=== PATIENT | male | born 1950 | race Caucasian/White ===

== ENCOUNTER 2017-04-10 15:41 | Emergency (ER) | payer MEDICARE, BC ==
[2017-04-10 15:54] VITALS: BP 169/78
[2017-04-10] MEDS ORDERED: Sodium Chloride 0.9% 1,000 ML IV ONE (16:10)
[2017-04-10] MEDS ORDERED: Ondansetron 4 MG/2 ML SDV IV ONE (16:10)
[2017-04-10] MEDS ORDERED: HYDROmorphone 1 MG/ML Syringe IVPUSH ONE (16:10)
[2017-04-10] MEDS ORDERED: Sodium Chloride 0.9% 10 ML Syringe FLUSH PRN (16:10)
--- NOTE | 2017-04-10 17:01 | CT ---
Clinical history: 66 year-old 206 pound male unexplained right lower quadrant pain. Scan technique: Volume acquisition of data from the abdomen and pelvis obtained without oral or IV co ntrast (emergency department) while the patient was lying supine on the Siemens multi slice scanner [facility]. All data archived in the PACS system for storage, refo rmatting and study. Interpretation: Abnormal. 1. Cholelithiasis i.e. solitary small intraluminal calcification gallbladder, right upper quadrant. H omogeneous normal density liver without sign of intra or extrahepatic biliary duct dilatation. Normal stomach and pancreas. Spleen unremarkable. 2. Normal appendix RLQ. 3. *Isolated tiny 1 mm diameter tone lodged in the distal right ureter which is dilated proximally (a ssociated mild pyelocaliectasis on the right as well) i.e. distal right, partially obstructing, urete rolithiasis. 4. No sign of diverticulitis, pelvic/abdominal soft tissue mass, retroperitoneal lymphadenopathy, inf lammatory "dirty" peritoneal fat, mechanical bowel obstruction, ascites or free intraperitoneal air. 5. Normal caliber aortoiliac vessels. 6. Multiple punctate calcifications prostate gland. Small volume but symmetric urinary bladder withou t calcifications. 7. Normal cardiac silhouette. Lung bases clear. Lumbar spine unremarkable. CONCLUSION: Distal right ureterolith. Cholelithiasis.
[2017-04-10] MEDS ORDERED: Tamsulosin 0.4 MG Cap.ER PO ONE (17:06)
--- NOTE | 2017-04-10 17:35 | EDM.PDOC ---
Scribed by Jenifer Hernandez 04/10/17 [id number] for Scar Moseley MD ED HPI GENERAL MEDICAL PROBLEM - General Chief Complaint: Abdominal Pain Stated Complaint: LOWER RT ABD PAIN, [id number] Time Seen by Provider: 04/10/17 16:04 Source of Information: Reports: Patient, RN, RN Notes Reviewed History Limitations: Reports: No Limitations - History of Present Illness INITIAL COMMENTS - FREE TEXT/NARRATIVE: Patient arrived by POV with complaint of onset of right lower quadrant pain this morning at approximately 10 am. The pain has been axing and weaning throughout the day, rated at 9/10 at maximum intensity. Patient's symptoms have been associated with nausea and vomiting. He has had some fever and chills sensations, but did not measure his temperature. Onset: Today Duration: Waxing/Waning Location: Reports: Abdomen Quality: Reports: Ache Severity: Severe Improves with: Reports: None Worsens with: Reports: None Associated Symptoms: Reports: No Other Symptoms Right Lower Abdominal Pain Score (Numeric/FACES): 4 - Related Data Allergies Allergy/AdvReac Type Severity Reaction Status Date / Time aspirin Allergy Vomiting Verified 04/10/17 15:51 Home Meds: Home Meds . [No Known Home Meds] 04/10/17 [History] Past Medical History - Past Health History Medical/Surgical History: Denies Medical/Surgical History Social & Family History - Family History Family Medical History: Noncontributory - Tobacco Use Smoking Status *Q: Never Smoker Second Hand Smoke Exposure: No - Caffeine Use Caffeine Use: Reports: None - Recreational Drug Use Recreational Drug Use: No ED ROS GENERAL - Review of Systems Review Of Systems: ROS reveals no pertinent complaints other than HPI. ED EXAM, GI/ABD - Physical Exam Exam: See Below Exam Limited By: No Limitations General Appearance: Alert, WD/WN, No Apparent Distress Nose: Normal Inspection Throat/Mouth: Normal Inspection, Normal Lips, Normal Teeth, Normal Gums, Normal Oropharynx, Normal Voice, No Airway Compromise Head: Atraumatic, Normocephalic Neck: Normal Inspection, Supple, Non-Tender, Full Range of Motion Respiratory/Chest: No Respiratory Distress, Lungs Clear, Normal Breath Sounds, No Accessory Muscle Use, Chest Non-Tender Cardiovascular: Normal Peripheral Pulses, Regular Rate, Rhythm, No Edema, No Gallop, No JVD, No Murmur, No Rub GI/Abdominal Exam: Normal Bowel Sounds, Soft, No Distention, No Abnormal Bruit, Guarding (at right lower quadrant), Tender (right lower quadrant). No: Rigid, Rebound (Male) Exam: Deferred Rectal (Males) Exam: Deferred Back Exam: Normal Inspection, Full Range of Motion, NT Extremities: Normal Inspection, Normal Range of Motion, Non-Tender, Normal Capillary Refill, No Pedal Edema Neurological: Alert, Oriented, CN II-XII Intact, Normal Cognition, Normal Gait, No Motor/Sensory Deficits Psychiatric: Normal Affect, Normal Mood Skin Exam: Warm, Dry, Intact, Normal Color, No Rash Course - Vital Signs Last Recorded V/S: Last Vital Signs Temp 36.6 C 04/10/17 15:51 Pulse 58 L 04/10/17 15:51 Resp 18 04/10/17 15:51 BP 169/78 H 04/10/17 15:51 Pulse Ox 98 04/10/17 15:51 - Orders/Labs/Meds Orders: Active Orders 24 hr Category Date Time Status Peripheral IV Care [RC] . DIRECTED Care 04/10/17 16:11 Active Sodium Chloride 0.9% [Saline Flush] Med 04/10/17 16:10 Active 10 ml FLUSH ASDIRECTED PRN Peripheral IV Insertion Adult [OM.PC] Stat Oth 04/10/17 16:10 Ordered Medication Orders Sodium Chloride (Saline Flush) 10 ml FLUSH ASDIRECTED PRN PRN Reason: Keep Vein Open Last Admin: 04/10/17 16:22 Dose: 10 ml Labs: Laboratory Tests 04/10/17 04/10/17 04/10/17 Range/Units 16:08 16:12 16:12 WBC 13.7 H (5.0-10.0) 10^3/uL RBC 5.41 (4.6-6.2) 10^6/uL Hgb 16.0 (14.0-18.0) g/dL Hct 45.8 (40.0-54.0) % MCV 84.7 (80-100) fL MCH 29.6 (27.0-34.0) pg MCHC 34.9 (33.0-35.0) g/dL Plt Count 244 (150-450) 10^3/uL Neut % (Auto) 90.8 H (42.2-75.2) % Lymph % (Auto) 6.0 L (20.5-50.1) % Camp % (Auto) 2.9 (2-8) % Eos % (Auto) 0.1 L (1.0-3.0) % Baso % (Auto) 0.2 (0.0-1.0) % Sodium 141 (135-145) mmol/L Potassium 4.2 (3.6-5.0) mmol/L Chloride 105 (101-111) mmol/L Carbon Dioxide 24.0 (21.0-31.0) mmol/L Anion Gap 16.2 BUN 22 H (7-18) mg/dL Creatinine 1.3 (0.6-1.3) mg/dL Est Cr Clr Drug Dosing 57.71 mL/min Estimated GFR (MDRD) 55 BUN/Creatinine Ratio 16.92 Glucose 180 H (74-105) mg/dL Calcium 9.5 (8.4-10.2) mg/dl Total Bilirubin 0.8 (0.2-1.0) mg/dL AST 30 (10-42) IU/L ALT 33 (10-60) IU/L Alkaline Phosphatase 46 (42-121) IU/L Total Protein 7.6 (6.7-8.2) g/dl Albumin 4.6 (3.2-5.5) g/dl Globulin 3.0 Albumin/Globulin Ratio 1.53 Amylase 69 (28-100) U/L Lipase 37 (22-51) U/L Urine Color Yellow (YELLOW) Urine Appearance Clear (CLEAR) Urine pH 5.0 (5.0-9.0) Ur Specific Wallace 1.025 (1.005-1.030) Urine Protein 30 H (NEGATIVE) Urine Glucose (UA) 500 H (NEGATIVE) Urine Ketones 15 H (NEGATIVE) Urine Occult Blood Moderate H (NEGATIVE) Urine Nitrite Negative (NEGATIVE) Urine Bilirubin Negative (NEGATIVE) Urine Urobilinogen 0.2 (0.2-1.0) mg/dL Ur Leukocyte Esterase Negative (NEGATIVE) Urine RBC 5-10 H /HPF Urine WBC 0-5 (0-5/HPF) /HPF Ur Epithelial Cells Rare /HPF Calcium Oxalate Crystal Few H /HPF Urine Bacteria Few (0-FEW/HPF) /HPF Hyaline Casts Few H /LPF Urine Mucus Few H /LPF Meds: Medications Generic Name Dose Route Start Last Admin Trade Name Ambrosio PRN Reason Stop Dose Admin Sodium Chloride 10 ml 04/10/17 16:10 04/10/17 16:22 Saline Flush FLUSH 10 ml ASDIRECTED PRN Administration Keep Vein Open Discontinued Medications Generic Name Dose Route Start Last Admin Trade Name Ambrosio PRN Reason Stop Dose Admin Hydromorphone HCl 1 mg 04/10/17 16:10 04/10/17 16:21 Dilaudid IVPUSH 04/10/17 16:11 1 mg ONETIME ONE Administration Sodium Chloride 1,000 mls @ 999 mls/hr 04/10/17 16:10 04/10/17 16:19 Normal Saline IV 04/10/17 17:10 999 mls/hr .BOLUS ONE Administration Ondansetron HCl 4 mg 04/10/17 16:10 04/10/17 16:19 Zofran IV 04/10/17 16:11 4 mg ONETIME ONE Administration Tamsulosin HCl 0.4 mg 04/10/17 17:06 04/10/17 17:17 Flomax PO 04/10/17 17:07 0.4 mg ONETIME ONE Administration - Radiology Interpretation Free Text/Narrative:: CT abdomen/pelvis: Distal right ureterolith. Cholelithiasis. See rad report. Departure - Departure Time of Disposition: 17:14 Disposition: Home, Self-Care 01 Condition: Fair Clinical Impression: Kidney stone on right side - Discharge Information Instructions: Kidney Stones, [id number] Forms: ED Department Discharge Additional Instructions: RX: Percocet 5mg/325mg. * Do not drive while under the influence of this medication. RX: Zofran 4mg. RX: Flomax 0.4mg. Follow up in clinic in 2 to 3 days for recheck. Return to ER if you develop a fever or if pain is uncontrolled at any time. I have read and agree with the documentation that has been completed regarding this visit. By signing this record, I attest that the documentation was completed in my physical presence and is an accurate record of the encounter.
== END 2017-04-10 17:36 | disposition home or self-care (01) ==
LOC: DL.ED 15:41
DX: N20.1 Calculus of ureter (principal); Z79.82 Long term (current) use of aspirin; Z88.6 Allergy status to analgesic agent
CPT/HCPCS: 36415; 74176; 80053; 81001; 82150; 83690; 85025; 96361; 96374; 96375; 99284; A9270; J1170; J2405; J7030; J7050

== ENCOUNTER 2017-05-15 11:33 | Emergency (ER) | payer MEDICARE, BC ==
--- NOTE | 2017-05-15 12:03 | EDM.PDOC ---
ED HPI GENERAL MEDICAL PROBLEM - General Chief Complaint: Lower Extremity Injury/Pain Stated Complaint: SOMETHING WRONG WITH ANKLE [id number] Time Seen by Provider: 05/15/17 11:53 Source of Information: Reports: Patient History Limitations: Reports: No Limitations - History of Present Illness INITIAL COMMENTS - FREE TEXT/NARRATIVE: This 66 yo male patient reports to the ED with left lateral ankle pain. The patient reports that he stepped off a ladder onto a sheet rock abby yesterday causing his ankle to roll. The patient reports increased pain and swelling since the incident (1300 yesterday). The patient reports he has been applying ice to the area since yesterday afternoon. Today, the patient has not been able to walk on the ankle. Onset Date: 05/14/17 Onset Time: 13:00 Duration: Constant Location: Reports: Lower Extremity, Left (ankle) Quality: Reports: Ache, Sharp Severity: Severe Improves with: Reports: Rest Worsens with: Reports: Movement Context: Reports: Trauma (rolled ankle yesterday) Associated Symptoms: Reports: No Other Symptoms Left Ankle Pain Score (Numeric/FACES): 8 - Related Data Allergies Allergy/AdvReac Type Severity Reaction Status Date / Time aspirin Allergy Vomiting Verified 04/10/17 15:51 Home Meds: Home Meds . [No Known Home Meds] 04/10/17 [History] Past Medical History - Past Health History Medical/Surgical History: Denies Medical/Surgical History Social & Family History - Family History Family Medical History: Noncontributory - Tobacco Use Smoking Status *Q: Never Smoker Second Hand Smoke Exposure: No - Caffeine Use Caffeine Use: Reports: None - Recreational Drug Use Recreational Drug Use: No Review of Systems - Review of Systems Review Of Systems: ROS reveals no pertinent complaints other than HPI. ED EXAM, GENERAL - Physical Exam Exam: See Below Exam Limited By: No Limitations General Appearance: Alert, WD/WN, Moderate Distress Eye Exam: Bilateral Eye: EOMI, Normal Inspection, PERRL Ears: Normal External Exam, Normal Canal, Hearing Grossly Normal, Normal TMs Nose: Normal Inspection, Normal Mucosa, No Blood Throat/Mouth: Normal Inspection, Normal Lips, Normal Teeth, Normal Gums, Normal Oropharynx, Normal Voice, No Airway Compromise Head: Atraumatic, Normocephalic Neck: Normal Inspection, Supple, Non-Tender, Full Range of Motion Respiratory/Chest: No Respiratory Distress, Lungs Clear, Normal Breath Sounds, No Accessory Muscle Use, Chest Non-Tender Cardiovascular: Normal Peripheral Pulses, Regular Rate, Rhythm, No Edema, No Gallop, No JVD, No Murmur, No Rub GI/Abdominal: Normal Bowel Sounds, Soft, Non-Tender, No Organomegaly, No Distention, No Abnormal Bruit, No Mass (Male) Exam: Deferred Rectal (Males) Exam: Deferred Back Exam: Normal Inspection, Full Range of Motion, NT Extremities: Leg Pain (left lateral ankle pain with swelling of the area) Neurological: Alert, Oriented, CN II-XII Intact, Normal Cognition Psychiatric: Normal Affect, Normal Mood Skin Exam: Warm, Dry, Intact, Other (swelling of the left lateral ankle) Lymphatic: No Adenopathy Course - Vital Signs Last Recorded V/S: Last Vital Signs Temp 36.6 C 05/15/17 12:10 Pulse 83 05/15/17 12:10 Resp 14 05/15/17 12:10 BP 126/78 05/15/17 12:10 Pulse Ox 97 05/15/17 12:10 - Orders/Labs/Meds Orders: Active Orders 24 hr Category Date Time Status Ankle Min 3V Lt [CR] Urgent Exams 05/15/17 11:54 Taken DME for Discharge [COMM] Urgent Oth 05/15/17 12:30 Ordered Departure - Departure Time of Disposition: 12:33 Disposition: Home, Self-Care 01 Condition: Fair Clinical Impression: Left ankle sprain Qualifiers: Encounter type: initial encounter Involved ligament of ankle: unspecified ligament Qualified Code(s): S93.402A - Sprain of unspecified ligament of left ankle, initial encounter - Discharge Information Instructions: Ankle Sprain, [id number] Forms: ED Department Discharge Care Plan Goals: The patient was advised of the examination and x-ray results during the visit. The patient was placed in a sugar tong splint and given a set of crutches while in the ED. The patient was encouraged to rest, ice and elevate his left ankle over the next 48 hours. If the patient has any additional symptoms or concerns, the patient should follow-up with his primary care facility or return to the emergency department. - My Orders Last 24 Hours: My Active Orders 05/15/17 11:54 Ankle Min 3V Lt [CR] Urgent 05/15/17 12:30 DME for Discharge [COMM] Urgent - Assessment/Plan Last 24 Hours: My Active Orders 05/15/17 11:54 Ankle Min 3V Lt [CR] Urgent 05/15/17 12:30 DME for Discharge [COMM] Urgent
[2017-05-15 12:19] VITALS: BP 126/78
== END 2017-05-15 13:05 | disposition home or self-care (01) ==
LOC: DL.ED 11:33
DX: S93.402A Sprain of unspecified ligament of left ankle, initial encounter (principal); X50.9XXA Other and unspecified overexertion or strenuous movements or postures, initial encounter; Z88.6 Allergy status to analgesic agent
CPT/HCPCS: 29515; 73610-LT; 99283